=== PATIENT | male | born 1950 | race Caucasian/White ===

== ENCOUNTER → 2018-07-13 | Outpatient (CLI) | payer OTHER ==
[~2018-07-13] MED LIST: APIX5TAB PO; ATOR10TA PO; DIGO125T PO; FLEC100T PO; METO-93 PO
[2018-07-13 12:00] LABS: BASOPHILS # (AUTO) 0.03 x10^3/uL (0-0.1); BASOPHILS % (AUTO) 1 % (0-1); EOSINOPHILS # (AUTO) 0.15 x10^3/uL (0-0.4); EOSINOPHILS % (AUTO) 3 % (1-7); LYMPHOCYTES # (AUTO) 2.37 x10^3/uL (1-3.4); LYMPHOCYTES % (AUTO) 40 % (22-44); MD NO; MEAN CORPUSCULAR HEMOGLOBIN 31.8 pg (27.5-34.5); MEAN CORPUSCULAR HGB CONC 33.6 g/dL (33.2-36.2); MEAN CORPUSCULAR VOLUME 94.7 fL (81-97); MEAN PLATELET VOLUME 8.5 fL (7.4-10.4); MONOCYTES # (AUTO) 0.57 x10^3/uL (0.2-0.8); MONOCYTES % (AUTO) 10 % (2-9); NEUTROPHILS # (AUTO) 2.82 x10^3/uL (1.8-6.8); NEUTROPHILS % (AUTO) 47 % (42-75); PLATELET COUNT 210 x10^3/uL (130-400); RED BLOOD COUNT 4.72 x10^6/uL (4.38-5.82); RED CELL DISTRIBUTION WIDTH 13.9 % (9.4-14.8)
[2018-07-13 12:05] LABS: CULTURE INDICATED? NO; MICROSCOPIC AUTO
[2018-07-13 12:07] LABS: INTERNATIONAL NORMALIZED RATIO 1.03 (0.93-1.1); PROTHROMBIN TIME 10.8 Seconds (9.6-11.5)
[2018-07-13 12:10] LABS: ANION GAP 4 mmol/L (5-15); CALCIUM 8.9 mg/dL (8.5-10.1); CHLORIDE 107 mmol/L (98-107); CREATININE 0.92 mg/dL (0.7-1.3)
== END | disposition home or self-care (01) ==
LOC: STAR 10:27
PROVIDERS: ATTEND Neurological Surgery
DX: Z01.818 Encounter for other preprocedural examination (principal); J44.9 Chronic obstructive pulmonary disease, unspecified; I10 Essential (primary) hypertension
CPT/HCPCS: 36415; 71046; 80048; 81001; 85025; 85610; 85730; 93005

== ENCOUNTER 2018-07-31 07:03 | Inpatient (IN) | payer OTHER ==
[~2018-07-31] VITALS: Ht 188 cm; Wt 85.4 kg
[~2018-07-31 07:03] MED LIST changes: +BACITRACIN 50,000 UNIT ONE; +BUPIVACAINE/PF 0.25% ONE; +BUPIVACAINE/PF-EPI 0.5% 1:200K ONE; +THROMBIN 5,000 UNIT VIAL TP ONE
[2018-07-31] MEDS ORDERED: LACTATED RINGERS 1,000 ML IV SCH (07:23)
[2018-07-31] MEDS ORDERED: ACETAMINOPHEN 500 MG TABLET PO ONE (07:30)
[2018-07-31] MEDS ORDERED: GABAPENTIN 300 MG CAPSULE PO ONE (07:30)
[2018-07-31 07:40] VITALS: BP 166/108
[2018-07-31] MEDS ORDERED: FENTANYL PF 250 MCG/5ML ONE (08:53)
[2018-07-31] MEDS ORDERED: PROPOFOL 50 ML ONE ×2 (08:54→11:11)
[2018-07-31] MEDS ORDERED: GLYCOPYRROLATE 0.2MG/1ML, 5ML ONE (08:56)
[2018-07-31] MEDS ORDERED: CEFAZOLIN 1,000 MG ONE (08:56)
[2018-07-31] MEDS ORDERED: NEOSTIGMINE 1 MG/ML, 10ML ONE (08:56)
[2018-07-31] MEDS ORDERED: ROCURONIUM 10MG/ML,5ML ONE (08:56)
[2018-07-31] MEDS ORDERED: SUCCINYLCHOLINE 20 MG/ML, 10ML ONE (08:56)
[2018-07-31] MEDS ORDERED: PROPOFOL 10 MG/ML, 20ML ONE (08:56)
[2018-07-31] MEDS ORDERED: VANCOMYCIN 1,000 MG ONE (10:04)
[2018-07-31] MEDS ORDERED: PHENYLEPHRINE 10 MG/ML ONE (10:21)
[2018-07-31] MEDS ORDERED: MORPHINE SULFATE 4 MG/ML, 1ML IVPush PRN (10:30)
[2018-07-31] MEDS ORDERED: hydrALAzine 20 MG/ML, 1ML IV PRN (10:30)
[2018-07-31] MEDS ORDERED: ONDANSETRON ODT 8 MG PO PRN (10:30)
[2018-07-31] MEDS ORDERED: PROMETHAZINE 25 MG/ML, 1ML IV PRN (10:30)
[2018-07-31] MEDS ORDERED: LABETALOL 5MG/ML, 20ML IV PRN (10:30)
[2018-07-31] MEDS ORDERED: PROMETHAZINE 25 MG SUPP PR PRN (10:30)
[2018-07-31] MEDS ORDERED: PROMETHAZINE 25 MG/ML, 1ML IM PRN ×3 (10:30→12:00)
[2018-07-31] MEDS ORDERED: ONDANSETRON 2MG/ML, 2ML IV PRN (10:30)
[2018-07-31] MEDS ORDERED: OXYcodone 5 MG/5 ML ORAL.SOL UDC PO PRN (10:30)
[2018-07-31] MEDS ORDERED: MEPERIDINE/PF 25MG/0.5ML IVPush PRN (10:30)
[2018-07-31] MEDS ORDERED: PROMETHAZINE 12.5 MG SUPP PR PRN (10:30)
[2018-07-31] MEDS ORDERED: VASOPRESSIN 20 UNIT/ML, 1ML ONE (11:19)
[2018-07-31] MEDS ORDERED: CYCLOBENZAPRINE 10 MG TABLET PO PRN (12:00)
[2018-07-31] MEDS ORDERED: LABETALOL 5MG/ML, 20ML IVPush PRN (12:00)
[2018-07-31] MEDS ORDERED: SENNA/DOCUSATE TABLET PO PRN (12:00)
[2018-07-31] MEDS ORDERED: morphine SULFATE 10 MG/ML, 1ML IVPush PRN (12:00)
[2018-07-31] MEDS ORDERED: PHARMACY MAY ADJ FOR RENAL FX MC PRN (12:00)
[2018-07-31] MEDS ORDERED: DIPHENHYDRAMINE 50 MG/ML, 1ML IVPush PRN (12:00)
[2018-07-31] MEDS ORDERED: MAGNESIUM HYDROXIDE 8%, 30ML UDC PO PRN (12:00)
[2018-07-31] MEDS ORDERED: ONDANSETRON 2MG/ML, 2ML IVPush PRN (12:00)
[2018-07-31] MEDS ORDERED: BISACODYL 10 MG SUPP PR PRN (12:00)
[2018-07-31] MEDS ORDERED: HYDROmorphone 1 MG/ML, 1ML VIAL ONE ×2 (12:27→13:27)
[2018-07-31] MEDS ORDERED: OXYcodone 5 MG/5 ML ORAL.SOL UDC ONE (12:28)
[2018-07-31] MEDS ORDERED: FENTANYL PF 100 MCG/2ML ONE (12:28)
[2018-07-31] MEDS: FENTANYL PF 100 MCG/2ML IV PRN ×2 (12:31→13:00)
[2018-07-31] MEDS: HYDROmorphone 2 MG/ML, 1ML IVPush PRN ×4 (12:38→13:25)
[2018-07-31] MEDS: D5%-0.9% NACL+KCL 20MEQ 1,000 ML IV SCH ×2 (14:58→23:20)
[2018-07-31] MEDS: CEFAZOLIN PMX 1GM/50ML 50 ML IVPB SCH (18:33)
[2018-07-31 20:10] VITALS: BP 155/91
[2018-07-31] MEDS: FLECAINIDE 100MG TABLET PO SCH (20:52)
[2018-07-31] MEDS: SODIUM CHLORIDE FLUSH 10ML SYR IVF SCH (20:52)
[2018-07-31] MEDS: ATORVASTATIN 10 MG TABLET PO SCH (20:52)
[2018-08-01 00:11] VITALS: BP 154/86
[2018-08-01] MEDS: CEFAZOLIN PMX 1GM/50ML 50 ML IVPB SCH (02:58)
[2018-08-01 04:11] VITALS: BP 135/81
[2018-08-01] MEDS: OXYcodone/APAP 5/325MG TABLET PO PRN ×4 (05:01→23:42)
[2018-08-01 07:14] VITALS: BP 124/64
[2018-08-01] MEDS ORDERED: METOPROLOL SUCCINATE 25 MG TAB.ER.24H ONE (08:49)
[2018-08-01] MEDS: DIGOXIN 0.125 MG TABLET PO SCH (08:53)
[2018-08-01] MEDS: METOPROLOL SUCCINATE 50 MG TAB.ER.24H PO SCH (08:53)
[2018-08-01] MEDS: FLECAINIDE 100MG TABLET PO SCH ×2 (08:53→20:45)
[2018-08-01] MEDS: SODIUM CHLORIDE FLUSH 10ML SYR IVF SCH ×2 (08:53→20:44)
[2018-08-01] MEDS: D5%-0.9% NACL+KCL 20MEQ 1,000 ML IV SCH ×2 (13:57→22:42)
[2018-08-01 14:14] VITALS: BP 116/72
[2018-08-01 19:34] VITALS: BP 141/76
[2018-08-01] MEDS: ATORVASTATIN 10 MG TABLET PO SCH (20:46)
[2018-08-02 00:54] VITALS: BP 122/75
[2018-08-02] MEDS: OXYcodone/APAP 5/325MG TABLET PO PRN (04:45)
[2018-08-02 08:00] VITALS: BP 126/80
[2018-08-02] MEDS ORDERED: METOPROLOL SUCCINATE 25 MG TAB.ER.24H ONE (08:37)
[2018-08-02] MEDS: DIGOXIN 0.125 MG TABLET PO SCH (08:40)
[2018-08-02] MEDS: SODIUM CHLORIDE FLUSH 10ML SYR IVF SCH (08:40)
[2018-08-02] MEDS: METOPROLOL SUCCINATE 50 MG TAB.ER.24H PO SCH (08:40)
[2018-08-02] MEDS: FLECAINIDE 100MG TABLET PO SCH (08:40)
[2018-08-02] MEDS ORDERED: OXYC-302 PO (09:36)
[2018-08-02] MEDS ORDERED: CYCL-259 PO (09:37)
== END 2018-08-02 10:00 | disposition home or self-care (01) | DRG 517 ==
LOC: OUT 07:03 → ORIP 11:43 → 4NOR 13:47
PROVIDERS: ADMIT Neurological Surgery; ATTEND Neurological Surgery
PROC: 4A11X4G Monitoring of Peripheral Nervous Electrical Activity, Intraoperative, External Approach (ICD-10-PCS; 2018-07-31)
PROC: 01NB0ZZ Release Lumbar Nerve, Open Approach (ICD-10-PCS; principal; 2018-07-31 10:30)
DX: M48.062 Spinal stenosis, lumbar region with neurogenic claudication (principal); E78.5 Hyperlipidemia, unspecified; J43.9 Emphysema, unspecified; I48.0 Paroxysmal atrial fibrillation; Z88.6 Allergy status to analgesic agent; Z88.8 Allergy status to other drugs, medicaments and biological substances
CPT/HCPCS: G0378; J0690; J1170; J2405; J2704; J2710; J3010; J3370; J3490; J0330; J2370; J3480; J7120